=== PATIENT | male | born 1995 | race Two or more races ===

== ENCOUNTER 2019-07-21 16:25 | Emergency (ER) | payer MEDICAID, OTHER ==
[~2019-07-21] VITALS: Ht 170.2 cm; Wt 75.0 kg
--- NOTE | 2019-07-21 16:45 | NUR ---
PATIENT TO ROOM 5 AFTER GOING TO BR TO COLLECT A URINE SAMPLE. PT C/O LEFT FLANK PAIN THAT IS STARTING TO WRAP AROUND TO THE FRONT. PT WAS SEEN IN [facility] YESTERDAY AND TREATED FOR UTI, BUT TOLD IF NOT BETTER TODAY GO TO ED FOR A CT SCAN. PT PLACED IN GOWN, PUT ON MONITOR, GIVEN WARM BLANKET AND CALL LIGHT WITH INSTRUCTIONS.
[2019-07-21 16:58] LABS: MICROSCOPIC AUTO
[2019-07-21 17:02] LABS: CULTURE INDICATED? YES
[2019-07-21 18:17] VITALS: BP 122/80
== END 2019-07-21 18:20 | disposition home or self-care (01) ==
LOC: ED 18:00
DX: N30.01 Acute cystitis with hematuria (principal)
CPT/HCPCS: 81001; 87086; 99283